=== PATIENT | male | born 1955 | race Caucasian/White ===

== ENCOUNTER 2016-12-19 20:52 | Emergency (ER) | payer MEDICARE, OTHER ==
--- NOTE | 2016-12-20 08:24 | RAD ---
CHEST 2 VIEWS HISTORY: Cough and fever. Frontal and lateral chest radiographs dated 12/19/2016. COMPARISON: None. FINDINGS: FOCAL AIRSPACE OPACITY: No gross airspace consolidation. PLEURAL EFFUSION: None. CARDIOMEDIASTINAL SILHOUETTE: Mild cardiomegaly without vascular congestion. PNEUMOTHORAX: None identified. OSSEOUS STRUCTURES: Degenerative change of the thoracic spine, multilevel osteophyte formation. Shortened appearance of the right clavicle which may be posttraumatic or postprocedural in nature. IMPRESSION: No acute cardiopulmonary process noted. Degenerative change of the thoracic spine.
== END 2016-12-20 00:15 | disposition home or self-care (01) ==
LOC: ED 20:52
DX: J06.9 Acute upper respiratory infection, unspecified (principal); H10.33 Unspecified acute conjunctivitis, bilateral; I10 Essential (primary) hypertension; E10.9 Type 1 diabetes mellitus without complications; E66.9 Obesity, unspecified; I50.9 Heart failure, unspecified; Z79.84 Long term (current) use of oral hypoglycemic drugs